=== PATIENT | female | born 1985 ===

== ENCOUNTER 2018-04-19 06:06 | Observation (INO) | payer BC ==
[2018-04-16 12:10] VITALS: BMI 22.3
[2018-04-19] MEDS ORDERED: Lactated Ringer's 1,000 ML IV ONE ×4 (07:16→13:00)
[2018-04-19] MEDS ORDERED: Propofol 10 mg/ml Inj (20 ML) ONE (07:25)
[2018-04-19] MEDS ORDERED: ePHEDrine 50 mg/ml Inj ONE (07:26)
[2018-04-19] MEDS ORDERED: Succinylcholine Chloride 20 mg/ml Syr (5 ml) IV ONE (07:26)
[2018-04-19] MEDS ORDERED: Lidocaine 4% (Laryng-O-Jet) Kit MM ONE (07:26)
[2018-04-19] MEDS ORDERED: Midazolam 2 MG/2 ML VIAL ONE (07:26)
[2018-04-19] MEDS ORDERED: Rocuronium 10 mg/ml (5 ml) ONE ×2 (07:26→10:17)
[2018-04-19] MEDS ORDERED: Phenylephrine 10 mg/ml Inj ONE (07:33)
[2018-04-19] MEDS: Bupivacaine 0.5% Inj(30mL) ONE ×2 (08:48→09:18)
[2018-04-19] MEDS ORDERED: Dexamethasone 4 mg/1 ml ONE (09:00)
[2018-04-19] MEDS ORDERED: Sevoflurane - Inhalation Anesthetic Liq (250 ml) ONE (09:51)
[2018-04-19] MEDS ORDERED: Methylene Blue 10 mg/mL(10ml) IV ONE (10:46)
[2018-04-19] MEDS ORDERED: Neostigmine 1:1000 (1 mg/ml) Inj ONE (11:25)
[2018-04-19] MEDS ORDERED: Naloxone 0.4 mg/ml Inj (Adult) IVP PRN (12:12)
[2018-04-19] MEDS ORDERED: Lactated Ringer's 1,000 ML IV SCH ×2 (12:15→12:30)
[2018-04-19] MEDS ORDERED: Oxycodone/Acetaminophen 5/325 mg Tab PO PRN (12:16)
[2018-04-19] MEDS: HYDROmorphone 0.5 mg/0.5 ml ISec IVP PRN ×3 (12:30→13:00)
[2018-04-20 06:13] LABS: HEMOGLOBIN 7.5 g/dL (12.0-16.0); MEAN CELL VOLUME 79.6 fl (81.0-99.0); MEAN CORPUSCULAR HGB CONC 31.4 g/dL (33.0-37.0); RBC 3.02 Mil/uL (3.80-5.20); RED CELL DISTRIBUTION WIDTH 16.5 % (11.5-14.5); WHITE BLOOD COUNT 11.1 K/uL (4.8-10.8)
[2018-04-20 06:41] VITALS: PULSE 69
--- NOTE | 2018-04-20 07:35 | CP.SDSHP ---
Same Day Surgery [facility] - Allergies Allergies: Allergies Penicillins Allergy (Verified 04/19/18 06:50) [facility] - Physical Exam Vital Signs: Vital Signs 04/20/18 04/20/18 03:42 06:40 Temperature 97.8 F 97.8 F Pulse Rate 78 69 Respiratory 18 20 Rate Blood Pressure 110/57 L 102/55 L O2 Sat by Pulse 100 95 Oximetry Short Stay Discharge - Short Stay Discharge Admitting Diagnosis/Reason for Visit: PELVIC PAIN, ENDOMETRIOSIS ENDOMETRIOMA Progress Note/Discharge Note with Instructions: Doing well voiding pain controlled abd soft nt nd ext no homans d/c home f/u with fernnadez in one week NPV prescriptions for percocet motrin and colace provided
[2018-04-20 08:22] VITALS: BP 111/59; RESP 18; TEMP 98.4; O2SAT 100
--- NOTE | 2018-04-20 08:24 | OP ---
PROCEDURE DATE: 04/19/18 PREOPERATIVE DIAGNOSES: Right ovarian endometrioma 8 cm, persistent chronic pelvic pain, times several months' duration. POSTOPERATIVE DIAGNOSES: Right ovarian endometrioma 8 cm, persistent chronic pelvic pain, times several months' duration with extensive stage 4 endometriosis. PROCEDURE PERFORMED: Right robotic ovarian cystectomy, resection of endometriosis, resection of periureteral peritoneum on the right and the left, left uterosacral ligament, resection of anterior bladder endometriosis, resection of right paratubal endometriosis, bilateral ureterolysis and cystoscopy with stent. Chromopertubation ESTIMATED BLOOD LOSS: 25 mL. URINE OUTPUT: Adam catheter put out approximately 400 mL of clear urine. INTRAVENOUS FLUID INTAKE: The patient received approximately 1800 mL of D5 LR intraoperatively. OPERATIVE FINDINGS: Extensive abdominal adhesions both filmy and thick along the anterior aspect of the uterus to the anterior abdominal wall. There was a large right ovarian endometrioma encompassed in an inflammatory complex which included the tube. There were numerous endometriotic implants. On cystoscopy, normal bladder identified, dome was normal. No lesions or masses. Both the ureters were identified and there was clear efflux of urine, and on exam, there was a normal external female genitalia. There is a large mass palpable approximately 18 weeks in size. Vagina was pink, cervix was smooth. No discharge identified. SURGEON: Krista Espinal MD. ANESTHESIA ADMINISTERED BY: Crystal Huddleston MD FINANCIAL OPERATIONS ANALYST: Clive Dudley MD. He was helpful in creating exposure, obtaining hemostasis, extraction of the specimens, and closure of the patient. The procedure would not have been possible without his assistance. COMPLICATIONS: There were no complications. DESCRIPTION OF PROCEDURE: After informed consent was obtained, the patient was taken to the operating room where she was placed in the [facility], prepped and draped in a normal sterile fashion. Attention was then turned to the urethra, a cystoscope was inserted in the bladder. The intertrochanteric ridge was identified. Both ureters were identified. The left ureter was then identified and stented, 5 mL of ICG green were injected and that a similar procedure was performed on the right. The patient had history of 2 previous surgeries, section and myomectomy and sonographic findings were consistent with bilateral endometriomas. and Chronic pelvic pain So, there was concern that there would be more extensive dissection. The HUMI uterine manipulator was inserted into the uterine cavity as a means to manipulate the uterus. Attention was then turned to approximately 3 cm superior to the umbilicus. Marcaine was infused and an 8 mm incision was made. The Veress needle was inserted into the abdominal cavity. Placement was confirmed with a fluid-filled syringe. The abdomen was then insufflated to 18 mmHg. The Veress needle was removed and an 8-mm robotic port was introduced. Placement was then confirmed with a laparoscope. The abdomen was surveyed. There was extensive endometriosis. There were prominent anterior abdominal wall adhesions to the uterine cavity. The right ovarian cyst was adherent to the posterior aspect of the uterus, cul-de-sac and pelvic side wall. There were prominent endometriotic implants along the anterior abdominal wall, left peritubal region, the left ovarian fossa and along the peritoneum in the posterior aspect of the pelvis. An 8 mm incision was made approximately 5 cm superior to the right anterior iliac crest. Marcaine was infused. An 8 mm incision was made and robotic port was introduced under direct visualization. A similar procedure was performed on the left. Attention was then turned to approximately 10 cm right and lateral to the umbilicus. An 8 mm incision was made. Then an additional robotic port was introduced under direct visualization. A 5 mm incision was made approximately 10 cm left and lateral to the umbilicus and an event sales assistant port was introduced under direct visualization. The patient was then placed in steep Trendelenburg, the robot was brought along the patient's side and docked without complication. The instruments used for the surgery were a PK dissector, scissors, ProGrasp, and an atraumatic grasper. Attention was then turned to the adhesions noted anteriorly. The uterus was manipulated downward. The adhesions were placed on tension and they were dissected using both sharp and blunt dissection with the PK and the scissor. Attention was then turned to the posterior anfd lateral right ovarian cyst. The cyst was not freely mobile. We elevated the cyst up and lysed adhesions posteriorly until the cyst was mobilized upward and away from the ovarian fossa. The cyst was noted to be adherant to the right pelvic side wall. The ureter was identified as it entered the pelvic brim, the peritoneum was tented upward and the retroperitoneal space was entered. The ureter was dissected down toward the cyst and mobilized laterally. A similar procedure was done on the left secondary to extensive pelvic adhesions and to resect endometriosis. The ovarian cortex was then scored and the cyst was enucleated from the ovary using both sharp and blunt dissection. The cyst contents were evacuated using the suction device and were noted to be hemorrhagic chocolate-like cyst fluid consistent with an endometrioma. The ovary was then coagulated with a PK dissector and noted to be hemostatic. As we were shelling out, lysing the ovary and elevating it upward, the ureter was identified using ICG green. The endometriosis was then resected and sent to pathology for evaluation. A similar procedure was then performed on the left. Attention was then turned to the anterior bladder where large endometriotic implant was identified and scored with the scissor and then resected, specimen was sent to pathology. The abdomen was then copiously irrigated. The irrigant was removed with a suction device. Everything was noted to be hemostatic. A chromopertubation was then performed. We saw spillage of bilaterally to confirm tubal . The irrigants were then removed with a suction device. The patient continued to be hemostatic. All instruments were removed from the abdomen and the patient was undocked from the robot successfully. The incisions were then repaired with 3-0 Biosyn and Dermabond. All sponge, lap, needle and instrument counts were correct x2, and the patient was taken to the recovery room in awake and stable condition. Krista Espinal MD HUSAM
== END 2018-04-20 11:02 | disposition home or self-care (01) ==
LOC: H.OPSURG 06:06 → H.MEDSURG1 12:16
PROVIDERS: ADMIT Obstetrics & Gynecology Gynecology; ATTEND Obstetrics & Gynecology Gynecology
DX: N80.1 Endometriosis of ovary (principal); N80.0 Endometriosis of uterus; N83.291 Other ovarian cyst, right side; N80.8 Other endometriosis; K66.0 Peritoneal adhesions (postprocedural) (postinfection); G89.29 Other chronic pain; Z88.0 Allergy status to penicillin
CPT/HCPCS: 36415; 52005; 58662; 85027; 86850; 86900; 88305; 94770; C1729; G0378; J1100; J1170; J1885; J2001; J2250; J2370; J2405; J2704; J2710; J3010; J7030; J7120; S2900